=== PATIENT | female | born 1950 | race Caucasian/White ===

== ENCOUNTER 2019-08-31 12:41 | Emergency (ER) | payer MEDICARE, SELFPAY ==
--- NOTE | 2019-08-31 12:49 | ED.GENADULT ---
HPI - General Adult General Chief complaint: Urogenital-Female Stated complaint: vaginal issues Time Seen by Provider: 08/31/19 12:49 Source: patient Mode of arrival: ambulatory Limitations: no limitations History of Present Illness HPI narrative: A 69 y/o female, who is a nonsmoker/nondrinker, presents to with c/o a hard and reddened area to her vaginal area for 3 days. Pt states that the pea-sized spot is raised and becomes irritated when I wipe. Pt notes that the area was itchy before the spot appeared. Pt is not sexually active. She denies dysuria, a fever, vaginal discharge, vaginal bleeding, and a PMHx of a UTI. She declines I & D Onset (ago): day(s) (3) Related Data Home Medications Medication Instructions Recorded Confirmed alendronate 70 mg PO WEEKLY 08/31/19 08/31/19 aspirin 325 mg PO BID 08/31/19 08/31/19 brimonidine [Alphagan P] 0.1 % OPHTHALMIC (EYE) BID 08/31/19 08/31/19 ergocalciferol (vitamin D2) 50,000 unit PO WEEKLY 08/31/19 08/31/19 hydrocodone-acetaminophen 1 tablet PO Q4-6H PRN 08/31/19 08/31/19 lisinopril 10 mg PO DAILY 08/31/19 08/31/19 senna 8.6 mg PO BID 08/31/19 08/31/19 Allergies Allergy/AdvReac Type Severity Reaction Status Date / Time No Known Allergies Allergy Unverified 08/31/19 12:56 Review of Systems Review of Systems: Narrative: At time of signature, agree with nursing past medical, surgical, social and family history. There is no relevant family history pertinent to the presenting complaint [facility] Family History Family History (Updated 02/05/16 @ 23:19 by DOCTOR UNKNOWN) Mother Family history of diabetes mellitus in first degree relative Family history of heart disease in male family member before age 55 Social History Social History Smoking status: Never smoker Alcohol intake: current Exam Narrative: Exam Narrative: General Appearance: Well appearing, No distress EYE: PERRLA, Conjunctiva clear Ears: External ear normal Nose: Normal nose Mouth/Throat: Normal appearing, Normal lips Neck: Supple Respiratory: Airway patent, No respiratory distress Cardiovascular: RRR Abdomen: Soft, Non-tender, No massess, Skin: Warm, Dry ; small inflamed follicle R labia w/o abscess/ fluctuance / induaration Neurological: A&O x3, CN II-X intact Psychiatric: Normal mood, Normal affect Course Vital Signs Vital signs: Vital Signs Temperature 97.7 F 08/31/19 12:52 Pulse Rate 61 08/31/19 12:52 Respiratory Rate 16 08/31/19 12:52 Blood Pressure 187/67 H 08/31/19 12:52 Pulse Oximetry 95 08/31/19 12:52 Temperature 97.7 F 08/31/19 12:52 Pulse Rate 61 08/31/19 12:52 Respiratory Rate 16 08/31/19 12:52 Blood Pressure 187/67 H 08/31/19 12:52 Pulse Oximetry 95 08/31/19 12:52 Medical Decision Making Vital Signs Vital Signs: Vital Signs Temperature 97.7 F 08/31/19 12:52 Pulse Rate 61 08/31/19 12:52 Respiratory Rate 16 08/31/19 12:52 Blood Pressure 187/67 H 08/31/19 12:52 Pulse Oximetry 95 08/31/19 12:52 Temperature 97.7 F 08/31/19 12:52 Pulse Rate 61 08/31/19 12:52 Respiratory Rate 16 08/31/19 12:52 Blood Pressure 187/67 H 08/31/19 12:52 Pulse Oximetry 95 08/31/19 12:52 Discharge Plan Discharge Clinical Impression: Folliculitis Patient Disposition: Home, Self-Care Condition: Stable Instructions: Antibiotic Form, Folliculitis (ED) Prescriptions: New clindamycin HCl 300 mg capsule 300 mg PO Q6H Qty: 15 RF: 0 mupirocin 2 % ointment 1 applic TOPICAL TID Qty: 30 RF: 0 No Action aspirin 325 mg Tablet 325 mg PO BID RF: 0 hydrocodone-acetaminophen 5-325 mg tablet 1 tablet PO Q4-6H PRN (Reason: Pain) RF: 0 alendronate 70 mg tablet 70 mg PO WEEKLY RF: 0 lisinopril 10 mg tablet 10 mg PO DAILY RF: 0 ergocalciferol (vitamin D2) 1,250 mcg (50,000 unit) capsule 50,000 unit PO WEEKLY RF: 0 senna 8.6 mg Capsule 8.6 mg PO BID RF:
[2019-08-31 12:52] VITALS: BP 187/67; PULSE 61; RESP 16; TEMP 36.5; O2SAT 95
== END 2019-08-31 13:50 | disposition home or self-care (01) ==
PROVIDERS: Emergency Provider Emergency Medicine
DX: L73.9 Follicular disorder, unspecified (principal); I10 Essential (primary) hypertension; M81.0 Age-related osteoporosis without current pathological fracture; H40.9 Unspecified glaucoma
CPT/HCPCS: 99213; G0463

== ENCOUNTER → 2020-04-14 16:04 | Outpatient (CLI) | payer MEDICARE, SELFPAY ==
--- NOTE | ~2020-04-14 | MM_ITS ---
EXAMINATION: MM screening jim BI w dmitry HISTORY: Screening TECHNIQUE: Craniocaudal and mediolateral oblique 3-D tomosynthesis images were obtained and synthetic 2-D images were generated. CAD analysis was submitted and interpreted. COMPARISON: Comparison to multiple prior studies sequentially, with oldest reviewed study dated 03/20. BREAST PARENCHYMAL COMPOSITION: There are scattered areas of fibroglandular density. FINDINGS: There are developing clustered calcifications in the upper outer quadrant of the right ad[address] st. The left breast is stable without evidence for malignancy. IMPRESSION: 1. Developing clustered calcifications upper outer quadrant of the right breast. 2. Magnification views are recommended. BI-RADS Category 0: Incomplete: Needs additional imaging evaluation. Reviewed, dictated and finalized at location A. IMPRESSION: 1. Developing clustered calcifications upper outer quadrant of the right breast . 2. Magnification views are recommended. BI-RADS Category 0: Incomplete: Needs additional imaging evaluation.
== END ==
PROVIDERS: PCP Family Medicine; Visit Provider Family Medicine
DX: Z12.31 Encounter for screening mammogram for malignant neoplasm of breast (principal); R92.8 Other abnormal and inconclusive findings on diagnostic imaging of breast
CPT/HCPCS: 77063; 77067

== ENCOUNTER → 2020-05-27 09:46 | Outpatient (CLI) | payer MEDICARE, SELFPAY ==
--- NOTE | ~2020-05-27 | MM_ITS ---
EXAMINATION: MM diagnostic mammo unilat RT HISTORY: Indeterminate right breast calcifications on screening mammogram TECHNIQUE: Additional images of the right breast were performed. CAD analysis was submitted and inter preted. COMPARISON: 04/14/2020, 02/02/2019,12/26/2017, 10/31/2016, 10/23/2014 FINDINGS: There are several groups of stable calcifications in the upper outer quadrant of the right breast. One group 15 cm from the nipple demonstrates slow, slight increase in number over multiple ma mmograms but appears to have a dystrophic morphology. IMPRESSION: 1. Probably benign right breast calcifications. 2. Recommend 6 month follow-up right diagnostic mammogram. BI-RADS category 3, probably benign findings. Reviewed, dictated and finalized at location A. [employer]
== END ==
PROVIDERS: PCP Family Medicine; Visit Provider Family Medicine
DX: R92.1 Mammographic calcification found on diagnostic imaging of breast (principal)
CPT/HCPCS: 77065

== ENCOUNTER → 2020-11-24 09:45 | Outpatient (CLI) | payer MEDICARE, SELFPAY ==
--- NOTE | ~2020-11-24 | MM_ITS ---
EXAMINATION: MM diagnostic jim RT w dmitry HISTORY: Follow-up right breast calcifications TECHNIQUE: Additional 3-D tomosynthesis images of the right breast were performed and synthetic 2-D i mages were generated. CAD analysis was submitted and interpreted. COMPARISON: Comparison to multiple prior studies sequentially, with oldest reviewed study dated 12/26. BREAST PARENCHYMAL COMPOSITION: Breast composed of scattered areas of fibroglandular density. FINDINGS: There are a cluster of indeterminate calcifications in the upper outer quadrant of the righ t breast which have increased in number and density compared with prior studies. IMPRESSION: 1. Increasing number and density of clustered indeterminate right breast calcifications. 2. Stereotactic right breast biopsy recommended. BI-RADS category 4, suspicious findings. Reviewed, dictated and finalized at location A. IMPRESSION: 1. Increasing number and density of clustered indeterminate right breast calcif ications. 2. Stereotactic right breast biopsy recommended. BI-RADS category 4, suspicious findings.
== END ==
PROVIDERS: PCP Family Medicine; Visit Provider Family Medicine
DX: R92.8 Other abnormal and inconclusive findings on diagnostic imaging of breast (principal)
CPT/HCPCS: 77061; 77065; G0279

== ENCOUNTER → 2021-02-09 10:54 | Outpatient (CLI) | payer MEDICARE, SELFPAY ==
--- NOTE | ~2021-02-09 | DEXA_ITS ---
Bone Density Report Name: Marivel Brand Age: 70 Sex: Female Ethnicity: White Date of : 1950 Indication: postmenopausal osteoporosis; monitoring treatment; height loss; Referring Provider: Brodie, Ayanna Ortega Study: Bone densitometry was performed. Exam Date: February 09, 2021 Accession number: [id number] Bone Density: Region BMD T-score Z-score Classification AP Spine (L1-L4) 1.114 0.6 2.8 Normal Femoral Neck (Left) 0.563 -2.6 -0.7 Osteoporosis Total Hip (Left) 0.655 -2.4 -0.8 Osteopenia Femoral Neck (Right) 0.572 -2.5 -0.6 Osteoporosis Total Hip (Right) 0.746 -1.6 0.0 Osteopenia Total Hip Mean 0.701 -2.0 -0.4 Osteopenia World Health Organization criteria for BMD impression classify patients as: Normal (T-score at or above -1.0), Osteopenia (T-score between -1.0 and -2.5), or Osteoporosis (T-score at or below -2.5). 10-year Fracture Risk: FRAX not reported because: Some T-score for Spine Total or Hip Total or Femoral Neck at or below -2.5 Treated for osteoporosis Previous Exams: Region Exam Age BMD T-score BMD Change BMD Change Date g/cm2 vs Baseline vs Previous AP Spine(L1-L4) 02/09/2021 70 1.114 0.6 0.010 -0.009 02/09/2021 70 1.123 0.7 0.019 0.083 11/19/2018 68 1.040 -0.1 -0.064* -0.064* 02/26/2013 62 1.104 0.5 Total Hip(Left) 02/09/2021 70 0.655 -2.4 0.014 0.022 11/19/2018 68 0.633 -2.5 -0.008 -0.008 02/26/2013 62 0.641 -2.5 Total Hip(Right) 02/09/2021 70 0.746 -1.6 -0.025 0.055 11/19/2018 68 0.692 -2.1 -0.080* -0.080* 02/26/2013 62 0.771 -1.4 *Denotes significance at 95% confidence level, LSC for AP Spine = 0.022 g/cm2, LSC for Total Hip = 0.027 g/cm2 Clinical Information Provided by Patient: Is being treated for osteoporosis Has used the following medications: Fosamax (i.e. alendronate), Vitamin D, Calcium Patient maximum height was 60.5 Menopause Age: 52 No regular weight bearing exercise Drinks caffeinated beverages Onset of menses at age 12 Number of children 2 Impression: The patient has osteoporosis, based on the Left Femoral Neck T-score. No significant bone loss was observed. Discussion: PATIENT UNDER TREATMENT WITH NO SIGNIFICANT BMD LOSS SINCE LAST EXAM. In an untreated patient, BMD typically declines with age. A lack of decline or gain is usuall
== END ==
PROVIDERS: PCP Family Medicine; Visit Provider Family Medicine
DX: M81.0 Age-related osteoporosis without current pathological fracture (principal); M85.852 Other specified disorders of bone density and structure, left thigh; M85.851 Other specified disorders of bone density and structure, right thigh
CPT/HCPCS: 77080

== ENCOUNTER → 2021-04-02 09:15 | Outpatient (CLI) | payer MEDICARE, SELFPAY ==
--- NOTE | ~2021-04-02 | MM_ITS ---
EXAMINATION: MM diagnostic jim BI w dmitry HISTORY: Recent right benign breast biopsy TECHNIQUE: ML, MLO and craniocaudal 3-D tomosynthesis images of both breasts [facility]. CAD analysis was submitted and interpreted. COMPARISON: 11/24/2020 diagnostic right mammogram 05/27/2020 diagnostic right mammogram 04/14/2020, 02/02/2019,12/26/2017 bilateral digital screening mammogram examinations BREAST PARENCHYMAL COMPOSITION: There are scattered areas of fibroglandular density. FINDINGS: Biopsy marker on the right and upper outer quadrant. No suspicious mass or architectural di stortion, malignant calcification, skin thickening or retraction or significant new or developing den sity is detected. Occasional bilateral benign calcifications. IMPRESSION: 1. No mammographic evidence of malignancy 2. Routine mammographic screening is recommended BI-RADS Category 2: Benign finding(s). Reviewed, dictated and finalized at location A.
== END ==
PROVIDERS: PCP Family Medicine
DX: R92.8 Other abnormal and inconclusive findings on diagnostic imaging of breast (principal)
CPT/HCPCS: 77062; 77066; G0279

== ENCOUNTER → 2022-08-05 14:55 | Outpatient (CLI) | payer MEDICARE, SELFPAY ==
--- NOTE | ~2022-08-05 | MM_ITS ---
EXAMINATION: MM screening jim BI w dmitry HISTORY: Screening TECHNIQUE: Craniocaudal and mediolateral oblique 3-D tomosynthesis images were obtained and synthetic 2-D images were generated. CAD analysis was submitted and interpreted. COMPARISON: Comparison to multiple prior studies sequentially, with oldest reviewed study dated 12/26. BREAST PARENCHYMAL COMPOSITION: There are scattered areas of fibroglandular density. FINDINGS: There is focal asymmetry which appears new in the upper aspect of the right breast on MLO v iew. The left breast is stable without evidence for malignancy. There are benign bilateral breast mai cifications. IMPRESSION: 1. New focal right breast asymmetry upper aspect of the right breast on MLO view. 2. Additional mammographic views and possible breast ultrasound are recommended. BI-RADS Category 0: Incomplete: Needs additional imaging evaluation. Reviewed, dictated and finalized at location A. GER TESTING IMPRESSION: 1. New focal right breast asymmetry upper aspect of the right breast on MLO vie w. 2. Additional mammographic views and possible breast ultrasound are recommended . BI-RADS Category 0: Incomplete: Needs additional imaging evaluation.
== END ==
PROVIDERS: PCP Family Medicine; Visit Provider Family Medicine
DX: Z12.31 Encounter for screening mammogram for malignant neoplasm of breast (principal); R92.8 Other abnormal and inconclusive findings on diagnostic imaging of breast
CPT/HCPCS: 77063; 77067

== ENCOUNTER → 2022-09-23 09:19 | Outpatient (CLI) | payer MEDICARE, SELFPAY ==
--- NOTE | ~2022-09-23 | MM_ITS ---
EXAMINATION: MM diagnostic jim RT w dmirty HISTORY: Focal new asymmetry in upper aspect of right breast on screening MLO view of 08/05/2022 TECHNIQUE: Additional ML and spot MLO 3-D tomosynthesis images of the right breast were performed and synthetic 2-D images were generated. CAD analysis was submitted and interpreted. COMPARISON: 08/05/2022 bilateral screening mammogram FINDINGS: The focal asymmetry reported in the upper right breast on screening MLO view of 08/05/2022 i s not confirmed on these supplemental views. No suspicious mass or architectural distortion or signif icant new or developing density is detected. There are scattered benign calcifications. IMPRESSION: 1. No mammographic evidence of malignancy 2. Routine annual mammographic screening is recommended BI-RADS Category 2: Benign Reviewed, dictated and finalized at location A.
== END ==
PROVIDERS: PCP Family Medicine; Visit Provider Family Medicine
DX: R92.8 Other abnormal and inconclusive findings on diagnostic imaging of breast (principal)
CPT/HCPCS: 77061; 77065; G0279

== ENCOUNTER 2024-01-25 11:00 | Outpatient (CLI) | payer MEDICARE, SELFPAY ==
--- NOTE | ~2024-01-25 | MM_ITS ---
EXAMINATION: MM screening jim BI w dmitry HISTORY: Screening TECHNIQUE: Craniocaudal and mediolateral oblique 3-D tomosynthesis images were obtained and synthetic 2-D images were generated. CAD analysis was submitted and interpreted. COMPARISON: Comparison to multiple prior studies sequentially, with oldest reviewed study dated 12/2019. BREAST PARENCHYMAL COMPOSITION: Not dense: There are scattered areas of fibroglandular density. FINDINGS: There is no evidence of suspicious mass, calcification, or architectural distortion to sugg est malignancy in either breast. There has been no suspicious interval change. IMPRESSION: 1. No mammographic evidence of malignancy. 2. Recommend routine screening mammography in one year. BI-RADS Category 1: Negative Reviewed, dictated and finalized at location B.
== END 2024-01-25 11:01 ==
LOC: MICIMG 11:01
PROVIDERS: PCP Family Medicine; Visit Provider Family Medicine
DX: Z12.31 Encounter for screening mammogram for malignant neoplasm of breast (principal)
CPT/HCPCS: 77063; 77067

== ENCOUNTER 2024-03-21 08:45 | Outpatient (CLI) | payer MEDICARE, SELFPAY ==
--- NOTE | ~2024-03-21 | CT_ITS ---
EXAMINATION: CT abdomen pelvis w con DATE: 03/21/2024 09:23 INDICATION: Altered bowel function. TECHNIQUE: Computed tomography (CT) of the abdomen and pelvis was performed with 100 mL Omnipaque 350 intravenous contrast. Automated exposure control and iterative reconstruction technique were employe d. The dose-length product was 864.63 mGy-cm. COMPARISON: CT abdomen and pelvis 05/24/2016 FINDINGS: The visualized portions of the lung bases demonstrate mild atelectasis. A calcified left mikie ng nodule is consistent with old granulomatous disease. No pleural effusion. The heart size is normal . No pericardial effusion. There is a small sliding hiatal hernia. There are cysts in the liver measu ring up to 2.6 cm. There are changes of cholecystectomy. There is splenosis in left upper quadrant. T he pancreas and adrenal glands are normal. There are peripelvic cysts in the kidneys measuring up to 3.1 cm on the left. There are no dilated loops of bowel. The appendix is normal. There are no patholo gically enlarged lymph nodes. There is no free intraperitoneal fluid. There is severe lumbar spondylo sis. There is a chronic compression fracture of L2. IMPRESSION: 1. Small sliding hiatal hernia. Reviewed, dictated and finalized at location A.
[2024-03-21 09:07] LABS: Estimated Glomerular Filt Rate 54
== END 2024-03-21 08:46 | disposition home or self-care (01) ==
LOC: MICIMG 08:46
PROVIDERS: PCP Family Medicine; Visit Provider Family Medicine
DX: R19.4 Change in bowel habit (principal); K44.9 Diaphragmatic hernia without obstruction or gangrene
CPT/HCPCS: 74177; Q9967

== ENCOUNTER 2024-11-19 14:06 | Outpatient (CLI) | payer MEDICARE, SELFPAY ==
--- NOTE | ~2024-11-19 | DEXA_ITS ---
Bone Density Report Name: ANA SAAVEDRA Age: 74 Sex: Female Ethnicity: White Date of : 1950 Indication: osteopenia; height loss; Referring Provider: Brodie, Ayanna Ortega Study: Bone densitometry was performed. Exam Date: November 19, 2024 Accession number: [id number] Bone Density: Region BMD T-score Z-score Classification AP Spine(L1-L4) 1.097 0.5 2.9 Normal Femoral Neck (Left) 0.569 -2.5 -0.4 Osteoporosis Total Hip (Left) 0.652 -2.4 -0.6 Osteopenia Femoral Neck (Right) 0.558 -2.6 -0.5 Osteoporosis Total Hip (Right) 0.742 -1.6 0.2 Osteopenia Total Hip Mean 0.697 -2.0 -0.2 Osteopenia World Health Organization criteria for BMD impression classify patients as: Normal (T-score at or above -1.0), Osteopenia (T-score between -1.0 and -2.5), or Osteoporosis (T-score at or below -2.5). 10-year Fracture Risk: FRAX not reported because: Some T-score for Spine Total or Hip Total or Femoral Neck at or below -2.5 Previous Exams: -- Region Exam Age BMD T-score BMD Change BMD Change Date g/cm2 vs Baseline vs Previous -- AP Spine (L1-L4) 11/19/2024 74 1.097 0.5 -0.6% -2.3%# 02/09/2021 70 1.123 0.7 1.7%# 0.8% 02/09/2021 70 1.114 0.6 0.9%# 7.1%# 11/19/2018 68 1.040 -0.1 -5.8%* -5.8%* 02/26/2013 62 1.104 0.5 Total Hip(Left) 11/19/2024 74 0.652 -2.4 1.8% -0.3%# 02/09/2021 70 0.655 -2.4 2.2%# 3.5%# 11/19/2018 68 0.633 -2.5 -1.3% -1.3% 02/26/2013 62 0.641 -2.5 Total Hip(Right) 11/19/2024 74 0.742 -1.6 -3.7%* -0.5%# 02/09/2021 70 0.746 -1.6 -3.3%# 7.9%# 11/19/2018 68 0.692 -2.1 -10.3%* -10.3%* 02/26/2013 62 0.771 -1.4 -- *Denotes significance at 95% confidence level, LSC for AP Spine = 0.022 g/cm2, LSC for Total Hip = 0.027 g/cm2 # Denotes dissimilar scan types or analysis methods Clinical Information Provided by Patient: Patient maximum height was 59 Menopause Age: 52 No regular weight bearing exercise Drinks caffeinated beverages Onset of menses at age 11 Number of children 2 Impression: The patient has osteoporosis, based on the Right Femoral Neck T-score. Unable to evaluate interval change due to the use of different scan modes. Discussion: INCREASED RISK OF FRACTURE. BONE DENSITY IS UNDESIRABLY LOW AT ONE OR MORE SKELETAL SITES, CONSISTENT WITH POSTMENOPAUSAL OSTEOPOROSIS. This patient's lowest T-score meets the World Health Organization's (WHO) criteria for osteoporosis at one or more sites (T-score -2.5 or below). In untreated patients, the risk of osteoporotic fracture increases approximately two-fold for each 1.0 SD decrease in T-score. Low bone density is not the only risk factor for fracture; also consider factors such as patient's age, frailty or poor health, risk of falling, risk of injury, previous osteoporotic fracture, family history of osteoporosis, cigarette smoking, low body weight, etc. Not everyone with low bone mineral density has osteoporosis; osteomalacia and other metabolic bone disorders should also be considered. Patients who have osteoporosis should be evaluated for specific diseases and conditions (secondary causes) that may cause or contribute to bone loss. The [place] [employer]ocrinologists (AACE) and National Osteoporosis Foundation (NOF) recommend pharmacologic intervention for all postmenopausal women whose T-score is in this range. The patient should follow a healthful lifestyle (good nutrition with adequate calcium and vitamin D, and appropriate weight-bearing exercise). Follow-Up: Consider a repeat BMD and Vertebral Fracture Assessment (VFA) exam in 2 years or sooner if medically necessary, to reassess this patient's status. Reported by: MARIIA on 11/27/2024 12:48:00 PM. Reviewed, dictated and finalized at location A.
== END 2024-11-19 14:07 | disposition home or self-care (01) ==
LOC: MICIMG 14:06
PROVIDERS: PCP Family Medicine; Visit Provider Family Medicine
DX: M81.0 Age-related osteoporosis without current pathological fracture (principal)
CPT/HCPCS: 77080

== ENCOUNTER 2025-01-27 14:46 | Outpatient (CLI) | payer MEDICARE, SELFPAY ==
--- NOTE | ~2025-01-27 | MM_ITS ---
EXAMINATION: MM screening [facility] BI w dmitry HISTORY: Screening TECHNIQUE: Craniocaudal and mediolateral oblique 3-D tomosynthesis images were obtained and synthetic 2-D images were generated. CAD analysis was submitted and interpreted. COMPARISON: Comparison to multiple prior studies sequentially, with oldest reviewed study dated 12/26. BREAST PARENCHYMAL COMPOSITION: There are scattered areas of fibroglandular density. FINDINGS: There is no evidence of suspicious mass, calcification, or architectural distortion to sug gest malignancy in either breast. Scattered benign-appearing calcifications are present. IMPRESSION: 1. No mammographic evidence of malignancy. 2. Recommend routine screening mammography in one year. BI-RADS Category 2: Benign finding(s). Reviewed, dictated and finalized at location B.
== END 2025-01-27 14:47 | disposition home or self-care (01) ==
LOC: MICIMG 14:48
PROVIDERS: PCP Family Medicine; Visit Provider Family Medicine
DX: Z12.31 Encounter for screening mammogram for malignant neoplasm of breast (principal)
CPT/HCPCS: 77063; 77067